=== PATIENT | male | born 1955 | race Caucasian/White ===

== ENCOUNTER 2019-02-11 17:22 | Inpatient (IN) | payer MEDICARE, MEDICAID ==
[~2019-02-11] VITALS: Ht 182.9 cm; Wt 77.8 kg
--- NOTE | 2019-02-11 17:26 | NUR ---
NO ANSWER X 1
--- NOTE | 2019-02-11 17:39 | NUR ---
WHOLESALE REPRESENTATIVE: PT TAKEN TO AWILDA Hewitt/Mariah GARZA PRIOR TO BEING TAKEN TO ED ROOM 30 FOR FURTHER EVALUATION
--- NOTE | 2019-02-11 18:04 | NUR ---
PT TO ED FOR GENERALIZED WEAKNESS X5-6 DAYS WITH MULTIPLE FALLS. PT WAS DECON'ED FOR BED BUGS WITH MULTIPLE BITES THROUGHOUT BODY. CONNECTED TO MONITORS. VSS. EDMD PRESENT FOR ASSESSMENT. AWAITING ORDERS.
--- NOTE | 2019-02-11 18:24 | NUR ---
Xray awaiting CT Cspine clearance post Bed Bug removal
[2019-02-11] MEDS ORDERED: SODIUM CHLORIDE FLUSH 10ML SYR IVF ONE (18:30)
[2019-02-11] MEDS ORDERED: SODIUM CHLORIDE 0.9% 1,000ML IVBOLUS ONE ×2 (18:30→19:30)
--- NOTE | 2019-02-11 18:39 | NUR ---
iv established and labs drawn and sent. vss. pt resting in room. awaiting results.
[2019-02-11 18:54] LABS: BASOPHILS # (AUTO) 0.02 x10^3/uL (0-0.1); BASOPHILS % (AUTO) 0 % (0-1); EOSINOPHILS # (AUTO) 0.06 x10^3/uL (0-0.4); EOSINOPHILS % (AUTO) 1 % (1-7); LYMPHOCYTES % (AUTO) 18 % (22-44); MD NO; MEAN CORPUSCULAR HEMOGLOBIN 31.5 pg (27.5-34.5); MEAN CORPUSCULAR HGB CONC 34.9 g/dL (33.2-36.2); MEAN CORPUSCULAR VOLUME 90.4 fL (81-97); MEAN PLATELET VOLUME 7.3 fL (7.4-10.4); MONOCYTES # (AUTO) 0.39 x10^3/uL (0.2-0.8); MONOCYTES % (AUTO) 8 % (2-9); NEUTROPHILS # (AUTO) 3.67 x10^3/uL (1.8-6.8); NEUTROPHILS % (AUTO) 73 % (42-75); PLATELET COUNT 205 x10^3/uL (130-400); RED BLOOD COUNT 3.68 x10^6/uL (4.38-5.82); RED CELL DISTRIBUTION WIDTH 16.7 % (9.4-14.8)
[2019-02-11 19:02] LABS: ALANINE AMINOTRANSFERASE 45 U/L (12-78); ALBUMIN 3.1 g/dL (3.4-5.0); ANION GAP 11 mmol/L (5-15); CALCIUM 8.7 mg/dL (8.5-10.1); CHLORIDE 93 mmol/L (98-107); CREATININE 1.17 mg/dL (0.7-1.3)
[2019-02-11 19:06] LABS: ALKALINE PHOSPHATASE 384 U/L (45-117); BILIRUBIN,TOTAL 1.5 mg/dL (0.2-1.0); TOTAL PROTEIN 7.7 g/dL (6.4-8.2); TROPONIN I < 0.015 ng/mL (0.000-0.045)
--- NOTE | 2019-02-11 19:25 | NUR ---
pt to ct. ua collected and sent.
[2019-02-11] MEDS ORDERED: INSULIN REGULAR 100 UNITS/ML, 3ML VIAL SQ-INSULIN ONE (19:30)
[2019-02-11] MEDS ORDERED: INSULIN LISPRO 100 UNITS/ML, PEN ONE (19:57)
[2019-02-11 19:59] LABS: ACETONE, SERUM Large (80mg/dL) mg/dL (Negative)
[2019-02-11 20:08] LABS: CULTURE INDICATED? YES; MICROSCOPIC INDICATED
--- NOTE | 2019-02-11 20:10 | NUR ---
EDMD TO BS TO UPDATE ON RESULTS AND POC. PLAN TO ADMIT. VSS. PT RESTING IN ROOM WATCHIGN TV. BLANKETS PROVIDED. CALL LIGHT WITHIN REACH.
--- NOTE | 2019-02-11 20:56 | NUR ---
RECEIVED BS REPORT FROM LADAN LESLIE TO ASSUME PT. CARE. PT. RESTING ON GURNEY WITH EYES CLOSED. NADN. ALL MONITORS IN PLACE. IVF INFUSING.
[2019-02-11] MEDS ORDERED: SODIUM CHLORIDE FLUSH 10ML SYR IVF PRN (21:00)
--- NOTE | 2019-02-11 21:21 | NUR ---
MARIAMA RN HAD GIVEN REPORT TO FLOOR RN PRIOR TO LEAVING. FLOOR READY FOR PT. TRANSPORT. [facility] AT BS FOR ADMISSION EVAL NOW.
[2019-02-11] MEDS ORDERED: POTASSIUM CHLORIDE 40 MEQ in SODIUM CHLORIDE 0.9% 500 ML IV ONE (21:30)
[2019-02-11] MEDS ORDERED: hydrALAzine 20 MG/ML, 1ML IVPush PRN (21:30)
[2019-02-11] MEDS ORDERED: ACETAMINOPHEN 325 MG TABLET PO PRN (21:30)
[2019-02-11] MEDS ORDERED: ONDANSETRON 2MG/ML, 2ML IVPush PRN (21:30)
[2019-02-11] MEDS ORDERED: ENALAPRILAT 1.25 MG/ML, 2ML IVPush PRN ×2 (21:30→22:00)
[2019-02-11] MEDS ORDERED: DOCUSATE 100 MG CAPSULE PO PRN (21:30)
[2019-02-11] MEDS ORDERED: NS + 20MEQ KCL 1,000 ML IV SCH (21:30)
[2019-02-11] MEDS ORDERED: CEFTRIAXONE PMX 1GM/50ML 50 ML ONE (21:36)
--- NOTE | 2019-02-11 21:39 | NUR ---
PT. BEING TRANSPORTED UPSTAIRS DR. EVANS ASKED THIS RN TO HANG IV ROCEPHIN. PER DR. EVANS NO BLOOD CULTURES NEEDED PRIOR TO THIS. PT. BEING TRANSPORTED NOW.
[2019-02-11] MEDS: INSULIN GLARGINE 100 UNITS/ML, PEN SQ-INSULIN SCH (22:00)
[2019-02-11] MEDS ORDERED: DEXTROSE 50%, 50ML SYRINGE IVPush PRN (22:00)
[2019-02-11] MEDS ORDERED: GLUCAGON 1 MG IM PRN (22:00)
[2019-02-11] MEDS ORDERED: CEFTRIAXONE PMX 1GM/50ML 50 ML IV ONE (22:00)
[2019-02-11] MEDS: INSULIN LISPRO 100 UNITS/ML, PEN SQ-INSULIN SCH (22:00)
[2019-02-11] MEDS ORDERED: DEXTROSE 4 GM TAB.CHEW PO PRN (22:00)
[2019-02-11 22:08] LABS: HEMOGLOBIN A1C 15.8 % (4.2-6.3)
[2019-02-11] MEDS: HEPARIN 5,000 UNITS/ML, 1ML SQ SCH (22:23)
[2019-02-11 23:48] VITALS: BP 133/77
[2019-02-12 00:52] LABS: ANION GAP 7 mmol/L (5-15); CALCIUM 8.3 mg/dL (8.5-10.1); CHLORIDE 105 mmol/L (98-107); CREATININE 0.99 mg/dL (0.7-1.3)
[2019-02-12 02:27] VITALS: BP 124/70
[2019-02-12] MEDS ORDERED: NS + 40MEQ KCL 1,000 ML IV SCH (02:30)
[2019-02-12] MEDS ORDERED: POTASSIUM CHLORIDE 40 MEQ in SODIUM CHLORIDE 0.9% 500 ML IV ONE (02:30)
[2019-02-12 03:03] LABS: ANION GAP 8 mmol/L (5-15); CALCIUM 8.3 mg/dL (8.5-10.1); CHLORIDE 104 mmol/L (98-107); CREATININE 1.01 mg/dL (0.7-1.3)
[2019-02-12 05:14] LABS: BASOPHILS # (AUTO) 0.02 x10^3/uL (0-0.1); BASOPHILS % (AUTO) 0 % (0-1); EOSINOPHILS # (AUTO) 0.11 x10^3/uL (0-0.4); EOSINOPHILS % (AUTO) 2 % (1-7); LYMPHOCYTES # (AUTO) 0.97 x10^3/uL (1-3.4); LYMPHOCYTES % (AUTO) 17 % (22-44); MD NO; MEAN CORPUSCULAR HEMOGLOBIN 30.8 pg (27.5-34.5); MEAN CORPUSCULAR VOLUME 90.6 fL (81-97); MEAN PLATELET VOLUME 7.4 fL (7.4-10.4); MONOCYTES # (AUTO) 0.43 x10^3/uL (0.2-0.8); MONOCYTES % (AUTO) 7 % (2-9); NEUTROPHILS # (AUTO) 4.23 x10^3/uL (1.8-6.8); NEUTROPHILS % (AUTO) 74 % (42-75); PLATELET COUNT 179 x10^3/uL (130-400); RED BLOOD COUNT 3.54 x10^6/uL (4.38-5.82); RED CELL DISTRIBUTION WIDTH 16.8 % (9.4-14.8)
[2019-02-12 05:15] LABS: ANION GAP 10 mmol/L (5-15); CALCIUM 8.3 mg/dL (8.5-10.1); CHLORIDE 105 mmol/L (98-107); CREATININE 0.94 mg/dL (0.7-1.3)
[2019-02-12 05:23] LABS: PREALBUMIN 11.9 mg/dL (20.0-40.0)
[2019-02-12] MEDS: HEPARIN 5,000 UNITS/ML, 1ML SQ SCH ×3 (05:38→20:47)
[2019-02-12 07:27] LABS: FOLATE LEVEL 10.8 ng/mL (3.1-17.5)
[2019-02-12] MEDS: INSULIN LISPRO 100 UNITS/ML, PEN SQ-INSULIN SCH ×4 (07:40→20:42)
[2019-02-12 09:41] VITALS: BP 117/73
[2019-02-12] MEDS: SODIUM CHLORIDE FLUSH 10ML SYR IVF SCH ×2 (10:18→20:40)
[2019-02-12] MEDS ORDERED: NS + 20MEQ KCL 1,000 ML IV SCH (12:00)
[2019-02-12] MEDS ORDERED: OMNIPAQUE 350 MG/ML, 100ML BOTTLE ONE (14:11)
[2019-02-12 14:24] VITALS: BP 118/65
[2019-02-12] MEDS: POTASSIUM CHLORIDE 20 MEQ in SODIUM CHLORIDE 0.45% 1,000 ML IV SCH ×2 (14:35→20:40)
[2019-02-12] MEDS: metFORMIN 500 MG TABLET PO SCH (17:35)
[2019-02-12 19:43] VITALS: BP 108/64
[2019-02-12] MEDS ORDERED: CEFTRIAXONE PMX 1GM/50ML 50 ML IV SCH (20:00)
[2019-02-12] MEDS: INSULIN GLARGINE 100 UNITS/ML, PEN SQ-INSULIN SCH (20:42)
[2019-02-13 00:22] VITALS: BP 111/71
[2019-02-13] MEDS: POTASSIUM CHLORIDE 20 MEQ in SODIUM CHLORIDE 0.45% 1,000 ML IV SCH ×2 (03:40→10:00)
[2019-02-13] MEDS: HEPARIN 5,000 UNITS/ML, 1ML SQ SCH ×2 (04:11→13:37)
[2019-02-13 04:27] LABS: ALANINE AMINOTRANSFERASE 38 U/L (12-78); ALBUMIN 2.3 g/dL (3.4-5.0); ANION GAP 5 mmol/L (5-15); CHLORIDE 112 mmol/L (98-107); CREATININE 0.83 mg/dL (0.7-1.3)
[2019-02-13 04:29] LABS: ALKALINE PHOSPHATASE 257 U/L (45-117); BASOPHILS # (AUTO) 0.02 x10^3/uL (0-0.1); BASOPHILS % (AUTO) 1 % (0-1); BILIRUBIN,TOTAL 0.7 mg/dL (0.2-1.0); EOSINOPHILS # (AUTO) 0.12 x10^3/uL (0-0.4); EOSINOPHILS % (AUTO) 3 % (1-7); LYMPHOCYTES # (AUTO) 1.14 x10^3/uL (1-3.4); LYMPHOCYTES % (AUTO) 28 % (22-44); MD NO; MEAN CORPUSCULAR HEMOGLOBIN 32.1 pg (27.5-34.5); MEAN CORPUSCULAR HGB CONC 35.2 g/dL (33.2-36.2); MEAN CORPUSCULAR VOLUME 91.4 fL (81-97); MEAN PLATELET VOLUME 7.3 fL (7.4-10.4); MONOCYTES # (AUTO) 0.37 x10^3/uL (0.2-0.8); MONOCYTES % (AUTO) 9 % (2-9); NEUTROPHILS # (AUTO) 2.45 x10^3/uL (1.8-6.8); NEUTROPHILS % (AUTO) 60 % (42-75); PLATELET COUNT 165 x10^3/uL (130-400); RED BLOOD COUNT 3.29 x10^6/uL (4.38-5.82); RED CELL DISTRIBUTION WIDTH 17.1 % (9.4-14.8); TOTAL PROTEIN 5.9 g/dL (6.4-8.2)
[2019-02-13 06:57] LABS: HEMOGLOBIN A1C 15.9 % (4.2-6.3)
[2019-02-13] MEDS: metFORMIN 500 MG TABLET PO SCH ×2 (08:00→15:32)
[2019-02-13] MEDS: SODIUM CHLORIDE FLUSH 10ML SYR IVF SCH (08:00)
[2019-02-13] MEDS: INSULIN GLARGINE 100 UNITS/ML, PEN SQ-INSULIN SCH ×2 (08:01→15:33)
[2019-02-13 09:38] LABS: OCCULT BLOOD NEGATIVE (NEGATIVE)
[2019-02-13] MEDS: INSULIN LISPRO 100 UNITS/ML, PEN SQ-INSULIN SCH ×2 (10:43→15:33)
[2019-02-13] MEDS ORDERED: DOCUSATE 100 MG CAPSULE PO SCH (21:00)
[2019-02-14] MEDS ORDERED: TAMSULOSIN 0.4 MG CAP.ER.24H PO SCH (09:00)
== END 2019-02-13 17:31 | disposition left against medical advice (07) | DRG 638 ==
LOC: ED 19:40 → EDIP 20:41 → 3NW 21:44
PROVIDERS: ADMIT Family Medicine; ATTEND Family Medicine
DX: E11.65 Type 2 diabetes mellitus with hyperglycemia (principal); E46 Unspecified protein-calorie malnutrition; E87.1 Hypo-osmolality and hyponatremia; N13.6 Pyonephrosis; D50.9 Iron deficiency anemia, unspecified; E87.5 Hyperkalemia; E87.6 Hypokalemia; I10 Essential (primary) hypertension; K59.00 Constipation, unspecified; N40.0 Benign prostatic hyperplasia without lower urinary tract symptoms; R62.7 Adult failure to thrive; Z53.21 Procedure and treatment not carried out due to patient leaving prior to being seen by health care provider; E11.51 Type 2 diabetes mellitus with diabetic peripheral angiopathy without gangrene; R29.6 Repeated falls; G54.0 Brachial plexus disorders; W07.XXXA Fall from chair, initial encounter; Y93.89 Activity, other specified; Z72.0 Tobacco use; Z79.4 Long term (current) use of insulin; Z79.82 Long term (current) use of aspirin; Z80.0 Family history of malignant neoplasm of digestive organs; Z91.14 Patient's other noncompliance with medication regimen; Z91.19 Patient's noncompliance with other medical treatment and regimen; Y92.89 Other specified places as the place of occurrence of the external cause; Y99.8 Other external cause status; Z98.1 Arthrodesis status; Z68.23 Body mass index [BMI] 23.0-23.9, adult
CPT/HCPCS: 36415; 70450; 71045; 72125; 74177; 80048; 80053; 81001; 82010; 82272; 82607; 82746; 82800; 82962; 83036; 83690; 83735; 83880; 84100; 84134; 84443; 84484; 85025; 87086; 93005; 93970; 96360; 96372; G0378; J0696; J1644; J3480; Q9967; J1815; J7030; J7040